=== PATIENT | male | born 1940 | race Caucasian/White ===

== ENCOUNTER 2016-12-31 06:12 | Observation (INO) | payer OTHER ==
[~2016-12-31] VITALS: Ht 175.3 cm; Wt 99.8 kg
[2016-12-31] VITALS (12 sets, daily range): BP systolic 100–142; BP diastolic 60–84
[2016-12-31] MEDS ORDERED: GABA600T2 PO (06:53)
[2016-12-31] MEDS ORDERED: METF10002 PO (06:53)
[2016-12-31] MEDS ORDERED: METO25TA9 PO (06:53)
[2016-12-31] MEDS ORDERED: INDA2.5T PO (06:53)
[2016-12-31] MEDS ORDERED: LOSA100T6 PO (06:53)
[2016-12-31] MEDS ORDERED: LIRA0.6P SQ (06:55)
[2016-12-31] MEDS ORDERED: OMEG-113 PO (06:55)
[2016-12-31] MEDS ORDERED: ASPI81TA2 PO (06:55)
[2016-12-31] MEDS ORDERED: FURO20TA3 PO (06:55)
[2016-12-31] MEDS ORDERED: GLIM4TAB2 PO (06:55)
[2016-12-31] MEDS ORDERED: LIDOCAINE 2% 20 ML VIAL. ONE (07:09)
[2016-12-31 07:19] LABS: HEMATOCRIT 37.2 % (39.0-53.0); HEMOGLOBIN 12.5 g/dL (13.0-17.5); RED BLOOD COUNT 3.99 x10^6/uL (4.30-5.70); RED CELL DISTRIBUTION WIDTH 13.1 % (11.5-14.5); WHITE BLOOD COUNT 9.2 x10^3/uL (4.0-11.0)
[2016-12-31 07:26] LABS: CALCIUM 9.2 mg/dL (8.5-10.1); CREATININE 1.4 mg/dL (0.7-1.3); GFR 49.1
[2016-12-31 07:32] LABS: INR 1.1 (0.8-1.1); PROTHROMBIN TIME PATIENT 13.2 SEC (11.7-14.0)
[2016-12-31] MEDS ORDERED: IODIXANOL 320 MG/ML 100 ML VIAL. ONE ×2 (07:51→08:32)
[2016-12-31] MEDS ORDERED: HEPARIN for IV BOLUS 10,000 UNIT/10 ML VIAL. ONE (07:58)
[2016-12-31] MEDS ORDERED: NITROGLYCERIN 200 MCG/2 ML SYRINGE FOR CATH/VASC LAB. ONE ×2 (07:58→09:11)
[2016-12-31] MEDS ORDERED: FENTANYL PF 100 MCG/2 ML VIAL. ONE (07:58)
[2016-12-31] MEDS ORDERED: VERAPAMIL 5 MG/2 ML VIAL. ONE (07:58)
[2016-12-31] MEDS ORDERED: MIDAZOLAM HCL 2 MG/2 ML VIAL. ONE (07:59)
--- NOTE | 2016-12-31 08:03 | PDOC ---
MODERATE SEDATION ASSESSMENT RISKS/ALTERNATIVES Risks/Alternatives Risks and alternatives of this type of sedation and procedure discussed with: RISK/ALTERNATIVES: Patient H & P ON CHART H & P H & P on chart and reviewed for co-morbid conditions and appropriate labs. H&P ON CHART: Yes STATUS PREG STATUS ASSESSED: N/A MEDS/ALLERGIES REVIEWED Meds/Allergies Reviewed Medications and Allergies including time and route of recently administered narcotics and sedatives. MEDS/ALLERGIES REVIEWED: Yes ASA RATING ASA RATING: II AIRWAY ASSESSMENT Airway Assessment Airway patency, oral function limitations, presence of caps, crowns, dentures, partials, and ability to extend neck assessed. AIRWAY ASSESSMENT: Yes MALLAMPATI SCORE MALLAMPATI SCORE: II PRE-SEDATION ASSESSMENT PRE-SEDATION ASSESSMENT: Yes PEPPER MCCRACKEN MD Dec 31, 2016 08:03
[2016-12-31] MEDS ORDERED: HEPARIN for IV BOLUS 10,000 UNIT/10 ML VIAL. IART ONE (08:30)
[2016-12-31] MEDS ORDERED: NITROGLYCERIN 200 MCG/2 ML SYRINGE FOR CATH/VASC LAB. IART ONE ×2 (08:30→09:15)
[2016-12-31] MEDS ORDERED: MIDAZOLAM HCL 2 MG/2 ML VIAL. IV ONE (08:30)
[2016-12-31] MEDS ORDERED: IODIXANOL 320 MG/ML 100 ML VIAL. IART ONE (08:30)
[2016-12-31] MEDS ORDERED: VERAPAMIL 5 MG/2 ML VIAL. IART ONE (08:30)
[2016-12-31] MEDS ORDERED: FENTANYL PF 100 MCG/2 ML VIAL. IV ONE (08:30)
[2016-12-31] MEDS ORDERED: LIDOCAINE 2% 20 ML VIAL. IJ ONE (08:30)
[2016-12-31] MEDS ORDERED: BIVALIRUDIN 250 MG VIAL IV ONE ×2 (08:34→08:45)
[2016-12-31] MEDS ORDERED: CONTRAST GIVEN MC PRN (08:45)
[2016-12-31] MEDS ORDERED: ASPIRIN 325 MG TABLET ONE (09:11)
[2016-12-31] MEDS ORDERED: CLOPIDOGREL BISULFATE 75 MG TABLET ONE (09:12)
[2016-12-31] MEDS ORDERED: ASPIRIN 325 MG TABLET PO ONE (09:15)
[2016-12-31] MEDS ORDERED: CLOPIDOGREL BISULFATE 75 MG TABLET PO ONE (09:15)
[2016-12-31] MEDS: IV 1/2 NORMAL SALINE 1,000 ML IV SCH (09:46)
[2016-12-31] MEDS ORDERED: NITROGLYCERIN SUBLINGUAL 0.4 MG BOTTLE OF 25. SL PRN (10:00)
[2016-12-31] MEDS: ASPIRIN ENTERIC COATED 325 MG TABLET.DR. PO SCH (10:00)
[2016-12-31] MEDS ORDERED: ACETAMINOPHEN 325 MG TABLET. PO PRN (10:00)
[2016-12-31] MEDS: CLOPIDOGREL BISULFATE 75 MG TABLET PO SCH (10:00)
--- NOTE | 2016-12-31 10:24 | CARD ---
APPROVED REPORT Procedure(s) performed: 1. Left heart catheterization and selective coronary angiography 2. Successful complex bifurcation PCI/stent placement to distal RCA/posterolateral branch/posterior descending branch INDICATION The indication(s) include : unstable angina . PROCEDURE NARRATIVE After explaining the risks, benefits and alternative options, informed consent from patient. Patient was brought to the cardiac [employer] and his right wrist was prepped and draped in the usual fashion after confirming a positive modified Otto's test. Arterial access was obtained in the right radial a rtery and 6 [place]ian sheath was inserted. Several attempts to advance a 6 [place] Timi catheter into t he ascending aorta were unsuccessful due to abnormal takeoff of the brachiocephalic artery from the a ortic arch. Subsequently, patient's right groin was prepped and draped in the usual fashion. 20 mL of 2% lidocaine was infiltrated into skin and subcutaneous tissues for local anesthesia. Arterial acces s was obtained in the right common femoral artery and 6 Zambian sheath was inserted. 6 [place]ian JL4 cath eter was used to perform selective angiography of the left coronary artery. After initial unsuccessfu l attempts at engaging the right coronary artery using 6 [place]ian JR4 catheter, this was successfully e ngaged with a 6 [place]ian 3 DRC catheter and selective angiography was performed. Left ventricular end-d iastolic pressure and transaortic gradients were measured. The following findings were noted. FINDINGS 1. Hemodynamics: Left ventricular end-diastolic pressure 17 mmHg. No pullback gradient across the a ortic valve. 2. Coronary angiography: a. The left main coronary artery arose from the left sinus of Valsalva, gave rise to the left anteri or descending and left circumflex arteries and did not show any significant stenosis. b. The left anterior descending artery showed 80% stenosis in the mid to distal segment. The first d iagonal branch showed 80% stenosis in a tortuous midsegment. The second diagonal branch showed patent stents in the proximal and mid segments. c. The left circumflex artery showed chronic total occlusion of a small obtuse marginal branch witho ut any other significant stenoses. d. The right coronary artery was a large and dominant vessel arising from the right sinus of Valsalv a that showed 30% in-stent restenosis in the midsegment. The distal segment showed a complex 90% bifu rcation stenosis involving the distal segment extending into the posterolateral and posterior descend ing arteries. INTERVENTION The right coronary artery was engaged with a 6 [place]ian AR guide catheter. The stenosis in the distal s egment was crossed into the posterolateral branch with a 0.014 inch [employer] prowater guidewire. A [employer] water guidewire was used to cross the stenosis into the posterior descending branch. Both thes e stenoses with sequentially dilated using a 2.25 x 12 mm trek balloon. Subsequently, the distal RCA and the posterolateral branch lesions were treated with a 2.5 x 14 mm resolute drug eluting stent. Th e stent struts were crossed into the posterior descending branch with the pro-water guidewire and a s truts and the lesion dilated with a 2.25 x 12 mm NC trek noncompliant balloon. Follow-up angiography showed resolution of the lesion to 0% with MART-3 distal flow. Patient tolerated the procedure well. Hemostasis was achieved using Angio-Seal in the groin and TR band in the right wrist. There were no i mmediate complications. Conclusion 90% complex bifurcation lesion involving the distal RCA/posterior descending/posterolateral branches as described above that was successfully treated with drug-eluting stent placement. Patient also has 80% stenoses involving the left anterior descending artery and also the first diagonal branch. Recommendations 1. Aspirin 325 mg daily 2. Plavix 75 mg daily for preferably one year 3. Plan for staged PCI/stents to LAD and diagnonal branch 4. Cardiovascular risk factor modification.
[2016-12-31] MEDS ORDERED: DEXTROSE 50% 25 GM / 50ML DISP.SYRIN. IV PRN (10:45)
[2016-12-31] MEDS: METOPROLOL SUCC 24HR ER 25 MG TAB.ER.24H. PO SCH (12:35)
[2016-12-31] MEDS: GLIMEPIRIDE 2 MG TABLET PO SCH ×2 (12:35→20:51)
[2016-12-31] MEDS: LOSARTAN POTASSIUM 50 MG TABLET. PO SCH (12:36)
[2016-12-31] MEDS ORDERED: ATORVASTATIN CALCIUM 40 MG TABLET. PO SCH (21:00)
[2016-12-31] MEDS: GABAPENTIN 300 MG CAPSULE. PO SCH (22:17)
[2017-01-01 03:00] VITALS: BP 139/72
[2017-01-01 07:08] VITALS: BP 152/79
[2017-01-01] MEDS: IV 1/2 NORMAL SALINE 1,000 ML IV SCH (07:30)
[2017-01-01] MEDS: GLIMEPIRIDE 2 MG TABLET PO SCH (08:11)
[2017-01-01] MEDS: ASPIRIN ENTERIC COATED 325 MG TABLET.DR. PO SCH (08:11)
[2017-01-01] MEDS: METOPROLOL SUCC 24HR ER 25 MG TAB.ER.24H. PO SCH (08:11)
[2017-01-01] MEDS: LOSARTAN POTASSIUM 50 MG TABLET. PO SCH (08:12)
[2017-01-01] MEDS: CLOPIDOGREL BISULFATE 75 MG TABLET PO SCH (08:12)
[2017-01-01] MEDS: GABAPENTIN 300 MG CAPSULE. PO SCH (08:12)
[2017-01-01 08:39] VITALS: BP 129/78
[2017-01-01 10:31] VITALS: BP 134/71
[2017-01-01] MEDS ORDERED: CLOP75TA PO (11:04)
[2017-01-01] MEDS ORDERED: ASPI325T4 PO (11:04)
--- NOTE | 2017-01-01 13:34 | PDOC3 ---
Discharge Summary Visit Information Date of Admission: Dec 31, 2016 Date of Discharge: Jan 01, 2017 Admitting Diagnosis: Chest Pain Final Diagnosis Problems Medical Problems: (1) CAD (coronary artery disease) Status: Acute (2) Unstable angina Status: Acute Brief Hospital Course Allergies Allergies Coded Allergies Type Severity Reaction Last Updated Verified No Known Drug Allergies 12/31/16 No Vital Signs Vital Signs Date Time Temp Pulse Resp B/P Pulse Ox O2 Delivery O2 Flow Rate FiO2 01/01/17 10:31 97.7 72 20 134/71 96 Room Air 97.7 01/01/17 08:00 2.0 Lab Results Laboratory Tests Test 12/31/16 07:10 12/31/16 17:36 12/31/16 21:09 01/01/17 08:47 White Blood Count 9.2x10^3/uL (4.0-11.0) Red Blood Count 3.99x10^6/uL (4.30-5.70) Hemoglobin 12.5g/dL (13.0-17.5) Hematocrit 37.2% (39.0-53.0) Mean Corpuscular Volume 93fL (79-100) Mean Corpuscular Hemoglobin 31pg (25-35) Mean Corpuscular Hemoglobin Concent 34g/dL (31-37) Red Cell Distribution Width 13.1% (11.5-14.5) Platelet Count 300x10^3/uL (140-400) Prothrombin Time 13.2SEC (11.7-14.0) Prothromb Time International Ratio 1.1 (0.8-1.1) Activated Partial Thromboplast Time 28SEC (24-38) Sodium Level 141mmol/L (136-145) Potassium Level 4.0mmol/L (3.5-5.1) Chloride Level 104mmol/L (98-107) Carbon Dioxide Level 27mmol/L (21-32) Anion Gap 10 (6-14) Blood Urea Nitrogen 23mg/dL (8-26) Creatinine 1.4mg/dL (0.7-1.3) Estimated GFR (Cockcroft-Gault) 49.1 Glucose Level 145mg/dL (70-99) Calcium Level 9.2mg/dL (8.5-10.1) Glucose (Fingerstick) 157mg/dL (70-99) 170mg/dL (70-99) 186mg/dL (70-99) Laboratory Tests Test 12/31/16 17:36 12/31/16 21:09 01/01/17 08:47 Glucose (Fingerstick) 157mg/dL (70-99) 170mg/dL (70-99) 186mg/dL (70-99) Brief Hospital Course Mr. Madrid is a 76 old male, with a history of CAD, who presented electively to the cardiac catheterization lab secondary to dyspnea on [id number]-[id number] exertions. Angiogram demonstrated 90% complex bifurcation lesion involving the distal RCA/posterior descending/posterolateral branches, which was successfully treated with drug-eluting stent placement. Additional 80% stenoses involving the left anterior descending artery and also the first diagonal branch noted with plan for staged intervention next week. Monitored overnight without complications or dysrhythmias noted on telemetry. Right femoral arteriotomy site C/D/I with neurovascular status intact. Lungs CTA bilaterally. Heart tones regular; no murmurs present. DAPT with ASA 325 mg indefinitely and Plavix 75mg preferably for one year. Discharge Information Condition at Discharge: Improved Follow Up: Weeks (next week) Disposition/Orders: D/C to Home Scheduled Aspirin (Aspirin) 1 TAB PO DAILY Clopidogrel Bisulfate (Clopidogrel) 1 TAB PO DAILY Furosemide (Furosemide) 1 TAB PO DAILY (Reported) Gabapentin (Gabapentin) 600 MG PO TID (Reported) Glimepiride (Glimepiride) 1 TAB PO BID (Reported) Indapamide (Indapamide) 1 TAB PO DAILY (Reported) Liraglutide (Victoza 2-Fernando) 0.6 MG SQ DAILY (Reported) Losartan Potassium (Losartan Potassium) 100 MG PO DAILY (Reported) Metformin Hcl (Metformin Hcl) 1 TAB PO BID (Reported) Metoprolol Succinate (Metoprolol Succinate ( Xl )) 50 MG PO DAILY (Reported) [place]-3S/Dha/Epa/Fish Oil (Fish Oil 1,200 mg Softgel) 2 EACH PO DAILY (Reported ) Discontinued Medications Aspirin (Aspirin) 1 TAB PO DAILY (Reported) Patient Instructions Patient Instructions GENERAL INSTRUCTIONS: 1. Your dressing should be removed prior to leaving the hospital. 2. It is OK to shower the day after your procedure. 3. If you received stents, be sure to carry your stent information card with you in your wallet/purse at all times. 4. Call the office immediately at [phone] if you notice any fever or if there is redness, worsening tenderness/pain, increased bruising, or drainage from the puncture site. 5. Should you have bleeding from the site, lie down immediately & put pressure on the site. The pressure should be hard enough to stop the bleeding. Have the nearest person call 911. DO NOT try to drive to the ER with active bleeding. 6. If you notice a change in color, coolness to touch, or loss of feeling in the affected extremity, come to the emergency room. Please have someone drive you or call 911 if no one is available. DO NOT drive yourself. 7. If you normally take glucophage (metformin), please do not take this medicine for 48 hours following your procedure. 8. DO NOT STOP TAKING YOUR PLAVIX OR ASPIRIN UNLESS IT IS CLEARED BY A ANIMAL CARE GIVER OF YOUR FILLING CARRIER AT OUR OFFICE. 9. QUIT SMOKING: the [place] [employer], [place] [employer], & [place] [employer] have cessation resources available on their websites 10. Please have someone available to drive you home from the hospital as you may be limited by sedation medications given during the procedure. Femoral (Groin) access: 1. Do no lifting, pushing, pulling, bending, stooping, or recurrent stair climbing for 3 days following your procedure. 2. Once past the first 3 days, do not do any HEAVY exertion or lifting for one week following the procedure. No gym workouts, running, lifting greater than a gallon of milk, etc 3. Do not submerge in bath or pool for one week. OK to drive 3 days following your procedure, but if going long distance, do not go alone & take hourly breaks to get out of car and walk around. Radial Artery (Wrist) access: 1. No pushing, pulling, lifting, typing, or anything that requires repetitive use/movement of the affected wrist for 3 days following your procedure. 2. OK to drive the day following your procedure. (This is because of effects of sedating medications.) Call the office at [phone] for any questions or concerns. LU MARTINEZ APRN Jan 01, 2017 13:34
== END 2017-01-01 12:30 | disposition home or self-care (01) ==
LOC: CCL 06:12 → 2 SOUTH 08:59
PROVIDERS: ADMIT Internal Medicine Cardiovascular Disease; ATTEND Internal Medicine Cardiovascular Disease
DX: I25.110 Atherosclerotic heart disease of native coronary artery with unstable angina pectoris (principal)
CPT/HCPCS: 36415; 80048; 82947; 85027; 85610; 85730; 92921; 92928; 93458; 96374; 96375; C1725; C1769; C1771; C1874; C1887; C1892; G0269; G0378; G0379; J0583; J2250; J3010; J3490

== ENCOUNTER 2017-01-07 06:10 | Inpatient (IN) | payer OTHER ==
[~2017-01-07] VITALS: Ht 175.3 cm; Wt 98.9 kg
[2017-01-07] VITALS (15 sets, daily range): BP systolic 95–149; BP diastolic 55–82
[~2017-01-07 06:10] MED LIST: ASPI325T4 PO; ASPI81TA2 PO; CLOP75TA PO; FURO20TA3 PO; GABA600T2 PO; GLIM4TAB2 PO; INDA2.5T PO; LIRA0.6P SQ; LOSA100T6 PO; METF10002 PO; METO25TA9 PO; OMEG-113 PO
[2017-01-07 07:10] LABS: HEMATOCRIT 38.1 % (39.0-53.0); RED BLOOD COUNT 4.09 x10^6/uL (4.30-5.70); RED CELL DISTRIBUTION WIDTH 13.3 % (11.5-14.5)
[2017-01-07] MEDS ORDERED: LIDOCAINE 2% 20 ML VIAL. ONE (07:16)
[2017-01-07] MEDS ORDERED: IOHEXOL 300 MG/ML 100ML VIAL. ONE ×3 (07:16→08:52)
[2017-01-07 07:18] LABS: CALCIUM 9.9 mg/dL (8.5-10.1); CREATININE 1.4 mg/dL (0.7-1.3); GFR 49.1; POTASSIUM 4.5 mmol/L (3.5-5.1)
[2017-01-07 07:36] LABS: PROTHROMBIN TIME PATIENT 12.4 SEC (11.7-14.0)
[2017-01-07] MEDS ORDERED: FENTANYL PF 100 MCG/2 ML VIAL. ONE (07:59)
[2017-01-07] MEDS ORDERED: MIDAZOLAM HCL 2 MG/2 ML VIAL. ONE (07:59)
[2017-01-07] MEDS ORDERED: IOHEXOL 300 MG/ML 100ML VIAL. IART ONE (08:15)
[2017-01-07] MEDS ORDERED: LIDOCAINE 2% 20 ML VIAL. IJ ONE (08:15)
[2017-01-07] MEDS ORDERED: FENTANYL PF 100 MCG/2 ML VIAL. IV ONE (08:15)
[2017-01-07] MEDS ORDERED: MIDAZOLAM HCL 2 MG/2 ML VIAL. IV ONE (08:15)
[2017-01-07] MEDS ORDERED: BIVALIRUDIN 250 MG VIAL IV ONE ×2 (08:24→08:30)
[2017-01-07] MEDS ORDERED: CLOPIDOGREL BISULFATE 75 MG TABLET ONE (08:52)
[2017-01-07] MEDS ORDERED: ASPIRIN 325 MG TABLET ONE (08:52)
[2017-01-07] MEDS ORDERED: ASPIRIN 325 MG TABLET PO ONE (09:00)
[2017-01-07] MEDS ORDERED: CLOPIDOGREL BISULFATE 75 MG TABLET PO ONE (09:00)
--- NOTE | 2017-01-07 09:28 | PDOC ---
MODERATE SEDATION ASSESSMENT RISKS/ALTERNATIVES Risks/Alternatives Risks and alternatives of this type of sedation and procedure discussed with: RISK/ALTERNATIVES: Patient H & P ON CHART H & P H & P on chart and reviewed for co-morbid conditions and appropriate labs. H&P ON CHART: Yes STATUS PREG STATUS ASSESSED: N/A MEDS/ALLERGIES REVIEWED Meds/Allergies Reviewed Medications and Allergies including time and route of recently administered narcotics and sedatives. MEDS/ALLERGIES REVIEWED: Yes ASA RATING ASA RATING: II AIRWAY ASSESSMENT Airway Assessment Airway patency, oral function limitations, presence of caps, crowns, dentures, partials, and ability to extend neck assessed. AIRWAY ASSESSMENT: Yes MALLAMPATI SCORE MALLAMPATI SCORE: II PRE-SEDATION ASSESSMENT PRE-SEDATION ASSESSMENT: Yes PEPPER MCCRACKEN MD Jan 07, 2017 09:28
[2017-01-07] MEDS: IV 1/2 NORMAL SALINE 1,000 ML IV SCH ×2 (09:31→18:14)
[2017-01-07] MEDS ORDERED: NITROGLYCERIN SUBLINGUAL 0.4 MG BOTTLE OF 25. SL PRN (09:45)
[2017-01-07] MEDS ORDERED: ACETAMINOPHEN 325 MG TABLET. PO PRN (09:45)
--- NOTE | 2017-01-07 09:48 | CARD ---
APPROVED REPORT Procedure(s) performed: Successful PCI/drug eluting stents placement to the left anterior descending artery and the first diagonal branch. INDICATION The indication(s) include : 76-year-old male recently underwent PCI/drug eluting stent placement to h is right coronary artery on 12/31/16 in the setting of unstable angina. He presented today for complet ion angioplasty and stent placement to the left anterior descending artery and the first diagonal bra [facility].. PROCEDURE NARRATIVE After explaining the risks, benefits and alternative options, informed conservative patient. Patient was brought to the cardiac [employer] and his right groin was prepped and draped in the usual fashion. 20 mL of 2% lidocaine was infiltrated into the skin and subcutaneous tissues for local anesthesia. Ar terial access was obtained in the right common femoral artery and 6 Bhutanese sheath was inserted. 6 Shahriar [facility] XB 3.5 guide catheter was used to engage the left coronary artery and selective angiography was p erformed. This confirmed the previously described 80% stenosis involving the mid to distal segment of left anterior descending artery and 80-90% stenosis involving a tortuous midsegment of the first merissa gonal branch. The stenosis in the left anterior descending artery was crossed with a 0.014 inch [employer] prowater guid ewire and was successfully treated with a 2.25 x 8 mm Xience Alpine drug-eluting stent. Subsequently, the stenosis in the diagonal branch was crossed with a 0.014 inch choice PT guidewire with a backup support from Corsair microcatheter after initial attempts at crossing this with a pro-water guidewire was unsuccessful. The stenosis was then predilated with a 2.0 x 12 mm mini trek balloon following wa s successfully treated with a 2.25 x 15 mm Xience alpine drug-eluting stent. Final angiography showed resolution of both the stenoses to 0% with MART-3 distal flow. Patient tolerated the procedure well. Hemostasis in the right groin achieved using Angio-Seal. There were no immediate complications. Conclusion Successful PCI/drug eluting stent placement to the left anterior descending artery and also the first diagonal branch. Recommendations 1. Aspirin 325 mg daily 2. Plavix 75 mg daily for preferably one year 3. Cardiovascular risk factor modification.
[2017-01-07] MEDS ORDERED: GABA600T2 PO (11:34)
[2017-01-07] MEDS ORDERED: DEXTROSE 50% 25 GM / 50ML DISP.SYRIN. IV PRN (12:45)
[2017-01-07] MEDS: GABAPENTIN 400 MG CAPSULE. PO SCH ×2 (15:34→20:19)
[2017-01-07] MEDS: INSULIN ASPART 300 UNITS/3 ML INSULN.PEN SQ SCH (18:07)
[2017-01-07] MEDS ORDERED: IV NORMAL SALINE 1000ML BAG 1,000 ML IV SCH (19:00)
[2017-01-08 03:40] VITALS: BP 131/54
[2017-01-08 06:08] LABS: CALCIUM 9.6 mg/dL (8.5-10.1); CREATININE 1.3 mg/dL (0.7-1.3); GFR 53.5; POTASSIUM 4.3 mmol/L (3.5-5.1)
[2017-01-08 07:23] VITALS: BP 136/72
[2017-01-08] MEDS ORDERED: GLIMEPIRIDE 2 MG TABLET PO SCH (08:00)
[2017-01-08] MEDS ORDERED: ASPIRIN 325 MG TABLET PO SCH (08:00)
[2017-01-08] MEDS ORDERED: CLOPIDOGREL BISULFATE 75 MG TABLET PO SCH (08:00)
[2017-01-08] MEDS: GABAPENTIN 400 MG CAPSULE. PO SCH (08:32)
[2017-01-08] MEDS: INSULIN ASPART 300 UNITS/3 ML INSULN.PEN SQ SCH ×2 (08:39→12:48)
[2017-01-08] MEDS ORDERED: FUROSEMIDE 20 MG TABLET PO SCH (09:00)
[2017-01-08] MEDS ORDERED: INDAPAMIDE 2.5 MG TABLET PO SCH (09:00)
[2017-01-08] MEDS ORDERED: LOSARTAN POTASSIUM 50 MG TABLET. PO SCH (09:00)
[2017-01-08] MEDS ORDERED: METOPROLOL SUCC 24HR ER 50 MG TAB.ER.24H. PO SCH (09:00)
[2017-01-08] MEDS ORDERED: OMEGA-3 FATTY ACIDS/FISH OIL 1,000 MG CAPSULE. PO SCH (09:00)
[2017-01-08 10:26] VITALS: BP 109/75
[2017-01-08 11:00] LABS: CHOLESTEROL/HDL RATIO 5.4
--- NOTE | 2017-01-08 14:47 | PDOC3 ---
Discharge Summary Visit Information Date of Admission: Jan 07, 2017 Date of Discharge: Jan 08, 2017 Admitting Diagnosis: Coronary artery disease Final Diagnosis Coronary artery disease Hypertension Diabetes mellitus Brief Hospital Course Allergies Allergies Coded Allergies Type Severity Reaction Last Updated Verified No Known Drug Allergies 12/31/16 No Vital Signs Vital Signs Date Time Temp Pulse Resp B/P Pulse Ox O2 Delivery O2 Flow Rate FiO2 01/08/17 10:26 98.2 71 18 109/75 95 Room Air 98.2 01/07/17 09:19 2.0 Lab Results Laboratory Tests Test 01/07/17 07:02 01/07/17 12:19 01/07/17 16:53 01/07/17 20:24 White Blood Count 9.0x10^3/uL (4.0-11.0) Red Blood Count 4.09x10^6/uL (4.30-5.70) Hemoglobin 13.0g/dL (13.0-17.5) Hematocrit 38.1% (39.0-53.0) Mean Corpuscular Volume 93fL (79-100) Mean Corpuscular Hemoglobin 32pg (25-35) Mean Corpuscular Hemoglobin Concent 34g/dL (31-37) Red Cell Distribution Width 13.3% (11.5-14.5) Platelet Count 328x10^3/uL (140-400) Prothrombin Time 12.4SEC (11.7-14.0) Prothromb Time International Ratio 1.0 (0.8-1.1) Activated Partial Thromboplast Time 36SEC (24-38) Sodium Level 139mmol/L (136-145) Potassium Level 4.5mmol/L (3.5-5.1) Chloride Level 102mmol/L (98-107) Carbon Dioxide Level 27mmol/L (21-32) Anion Gap 10 (6-14) Blood Urea Nitrogen 32mg/dL (8-26) Creatinine 1.4mg/dL (0.7-1.3) Estimated GFR (Cockcroft-Gault) 49.1 Glucose Level 145mg/dL (70-99) Calcium Level 9.9mg/dL (8.5-10.1) Glucose (Fingerstick) 245mg/dL (70-99) 171mg/dL (70-99) 217mg/dL (70-99) Test 01/08/17 05:00 01/08/17 08:05 01/08/17 11:14 Sodium Level 138mmol/L (136-145) Potassium Level 4.3mmol/L (3.5-5.1) Chloride Level 100mmol/L (98-107) Carbon Dioxide Level 28mmol/L (21-32) Anion Gap 10 (6-14) Blood Urea Nitrogen 22mg/dL (8-26) Creatinine 1.3mg/dL (0.7-1.3) Estimated GFR (Cockcroft-Gault) 53.5 Glucose Level 174mg/dL (70-99) Calcium Level 9.6mg/dL (8.5-10.1) Triglycerides Level 162mg/dL (0-150) Cholesterol Level 212mg/dL (0-200) LDL Cholesterol, Calculated 141mg/dL (0-100) VLDL Cholesterol, Calculated 32mg/dL (0-40) HDL Cholesterol 39mg/dL (40-60) Cholesterol/HDL Ratio 5.4 Glucose (Fingerstick) 183mg/dL (70-99) 223mg/dL (70-99) Laboratory Tests Test 01/07/17 16:53 01/07/17 20:24 01/08/17 05:00 01/08/17 08:05 Glucose (Fingerstick) 171mg/dL (70-99) 217mg/dL (70-99) 183mg/dL (70-99) Sodium Level 138mmol/L (136-145) Potassium Level 4.3mmol/L (3.5-5.1) Chloride Level 100mmol/L (98-107) Carbon Dioxide Level 28mmol/L (21-32) Anion Gap 10 (6-14) Blood Urea Nitrogen 22mg/dL (8-26) Creatinine 1.3mg/dL (0.7-1.3) Estimated GFR (Cockcroft-Gault) 53.5 Glucose Level 174mg/dL (70-99) Calcium Level 9.6mg/dL (8.5-10.1) Triglycerides Level 162mg/dL (0-150) Cholesterol Level 212mg/dL (0-200) LDL Cholesterol, Calculated 141mg/dL (0-100) VLDL Cholesterol, Calculated 32mg/dL (0-40) HDL Cholesterol 39mg/dL (40-60) Cholesterol/HDL Ratio 5.4 Test 01/08/17 11:14 Glucose (Fingerstick) 223mg/dL (70-99) Brief Hospital Course Mr. Madrid is a 76 old male who recently underwent PCI/ELIUD to right coronary artery on 12/31/16 in the setting of unstable angina. He presented for completion angioplasty and stent placement to left anterior descending artery and also the diagonal branch. This was performed successfully and uneventfully. He was hemodynamically stable and symptom-free at the time of discharge. He will follow-up with our office in one month. Discharge Information Condition at Discharge: Stable Follow Up: Months (One) Disposition/Orders: D/C to Home Scheduled Aspirin (Aspirin) 1 TAB PO DAILY Clopidogrel Bisulfate (Clopidogrel) 1 TAB PO DAILY Furosemide (Furosemide) 1 TAB PO DAILY (Reported) Gabapentin (Gabapentin) 1,200 MG PO TID (Reported) Glimepiride (Glimepiride) 1 TAB PO BID (Reported) Indapamide (Indapamide) 1 TAB PO DAILY (Reported) Liraglutide (Victoza 2-Fernando) 0.6 MG SQ DAILY (Reported) Losartan Potassium (Losartan Potassium) 100 MG PO DAILY (Reported) Metformin Hcl (Metformin Hcl) 1 TAB PO BID (Reported) Metoprolol Succinate (Metoprolol Succinate ( Xl )) 50 MG PO DAILY (Reported) [place]-3S/Dha/Epa/Fish Oil (Fish Oil 1,200 mg Softgel) 2 EACH PO DAILY (Reported ) Discontinued Medications Aspirin (Aspirin) 1 TAB PO DAILY (Reported) Gabapentin (Gabapentin) 600 MG PO TID (Reported) PEPPER MCCRACKEN MD Jan 08, 2017 14:47
== END 2017-01-08 16:00 | disposition home or self-care (01) | DRG 247 ==
LOC: CCL 06:10 → CVICU 09:24
PROVIDERS: ADMIT Internal Medicine Cardiovascular Disease; ATTEND Internal Medicine Cardiovascular Disease
PROC: B2111ZZ Fluoroscopy of Multiple Coronary Arteries using Low Osmolar Contrast (ICD-10-PCS; principal; 2017-01-07)
PROC: 027135Z Dilation of Coronary Artery, Two Arteries with Two Drug-eluting Intraluminal Devices, Percutaneous Approach (ICD-10-PCS; 2017-01-07)
DX: I25.110 Atherosclerotic heart disease of native coronary artery with unstable angina pectoris (principal); I10 Essential (primary) hypertension; E11.9 Type 2 diabetes mellitus without complications
CPT/HCPCS: 36415; 80048; 80061; 82947; 85027; 85610; 85730; 92928; 92929; C1725; C1769; C1771; C1874; C1887; C1892; G0269; J0583; J1815; J2250; J3010; Q9967

== ENCOUNTER → 2017-08-02 | Outpatient (CLI) | payer OTHER ==
[~2017-08-02] MED LIST changes: +ASPI-630 PO; -ASPI325T4 PO; +ASPI325T8 PO; -ASPI81TA2 PO; +METF-620 PO; -METF10002 PO; +METO-239 PO; -METO25TA9 PO
--- NOTE | 2017-08-02 11:36 | CARD ---
APPROVED REPORT EXAM: Two-dimensional and M-mode echocardiogram with Doppler and color Doppler. Other Information Quality : GoodHR: 70bpm Rhythm : NSR INDICATION Cardiac Disease: CAD RISK FACTORS Obesity 2D DIMENSIONS RVDd3.3 (2.9-3.5cm)Left Atrium(2D)4.7 (1.6-4.0cm) IVSd1.3 (0.7-1.1cm)Aortic Root(2D)2.9 (2.0-3.7cm) LVDd4.9 (3.9-5.9cm)LVOT Diameter2.4 (1.8-2.4cm) PWd1.3 (0.7-1.1cm)LVDs3.4 (2.5-4.0cm) FS (%) 30.2 %SV65.9 ml LVEF(%)57.3 (>50%) Aortic Valve AoV Peak Aaron.154.0cm/sAoV VTI35.1cm AO Peak GR.9.5mmHgLVOT Peak Aaron.142.1cm/s AO Mean GR.6mmHgAVA (VMAX)4.32cm2 AI P 1/2 [id number] Mitral Valve MV E Limqczew07.2cm/sMV E Peak Gr.4mmHg MV DECEL [id number] A Kpllnpbs299.2cm/s MV E Mean Gr.1mmHgE/A Ratio0.7 MV A [id number] Pulmonary Valve PV Peak Fjkuxwze36.0cm/s Tricuspid Valve TR P. Slcuhnmz074wp/sTR Peak Gr.28mmHg Pulmonary Vein S1 Pkmkzsbw81.3cm/sD2 Wmtcofon50.9cm/s PVa [id number] LEFT VENTRICLE The left ventricle is normal size. There is mild concentric left ventricular hypertrophy. The left ve ntricular systolic function is normal. The Ejection Fraction is 60-65%. There is normal LV segmental wall motion. Transmitral Doppler flow pattern is Grade I-abnormal relaxation pattern. RIGHT VENTRICLE The right ventricle is normal size. There is normal right ventricular wall thickness. The right ventr icular systolic function is normal. ATRIA The left atrium is moderately dilated. The right atrium size is normal. The interatrial septum is int act with no evidence for an atrial septal defect or patent foramen ovale as noted on 2-D or Doppler i ing. AORTIC VALVE The aortic valve is mildly sclerotic. The aortic valve is trileaflet. Doppler and Color Flow revealed mild aortic regurgitation. There is no significant aortic valvular stenosis. MITRAL VALVE Mitral annular calcification is mild. The mitral valve leaflets are thickened. There is no evidence o f mitral valve prolapse. There is no mitral valve stenosis. Doppler and Color Flow revealed mild mitr al regurgitation. TRICUSPID VALVE Doppler and Color Flow revealed mild tricuspid regurgitation. The pulmonary artery systolic pressure is estimated at 31 mmHg. There is mild pulmonary hypertension. PULMONIC VALVE The pulmonary valve is not well visualized but appears to open adequately. Doppler and Color Flow rev ealed no pulmonic valvular regurgitation. There is no pulmonic valvular stenosis by spectral Doppler. GREAT VESSELS The aortic root is normal in size. The ascending aorta is normal in size. The pulmonary artery is nor mal. The IVC is normal in size and collapses >50% with inspiration. PERICARDIAL EFFUSION There is no evidence of significant pericardial effusion. Critical Notification Critical Value: No <Conclusion> The left ventricular systolic function is normal. The Ejection Fraction is 60-65%. There is normal LV segmental wall motion. Transmitral Doppler flow pattern is Grade I-abnormal relaxation pattern. The left atrium is moderately dilated. Mild aortic regurgitation. Mild tricuspid regurgitation. The pulmonary artery systolic pressure is estimated at 31 mmHg. There is no evidence of significant pericardial effusion.
== END | disposition home or self-care (01) ==
LOC: ECHO 09:40
PROVIDERS: ATTEND Internal Medicine Cardiovascular Disease
DX: I08.2 Rheumatic disorders of both aortic and tricuspid valves (principal); I25.10 Atherosclerotic heart disease of native coronary artery without angina pectoris; I27.2 Other secondary pulmonary hypertension
CPT/HCPCS: 93306

== ENCOUNTER → 2018-02-14 | Outpatient (CLI) | payer OTHER | END | disposition home or self-care (01) | LOC: KCIC MRI 08:41 | DX: G93.41 Metabolic encephalopathy (principal) | CPT/HCPCS: 70551 ==

== ENCOUNTER → 2018-02-20 | Outpatient (CLI) | payer OTHER | END | disposition home or self-care (01) | LOC: KCIC US 11:55 | DX: I65.21 Occlusion and stenosis of right carotid artery (principal); I10 Essential (primary) hypertension; Z86.73 Personal history of transient ischemic attack (TIA), and cerebral infarction without residual deficits | CPT/HCPCS: 93880 ==

== ENCOUNTER → 2021-07-07 | Outpatient (CLI) | payer MEDICARE, OTHER ==
[~2021-07-07] MED LIST changes: -GABA600T2 PO; +GABA600T7 PO; +GADOTERATE 7.5 MMOL/15ML VIAL. IVP ONE; -GLIM4TAB2 PO; +GLIM4TAB8 PO; +LOSA100T14 PO; -LOSA100T6 PO; -METF-620 PO; +METF10007 PO
--- NOTE | 2021-07-07 11:20 | KCIC ---
EXAMINATION: Magnetic resonance imaging (MRI) of the lumbar spine with and without contrast 07/07/2021 9:30 AM HISTORY: Low back pain. TECHNIQUE: Multiplanar multi-weighted MRI of the lumbar spine was performed with and without intraven ous contrast using the standard lumbar spine protocol. Contrast information: Gadolinium based contrast. COMPARISON: CT abdomen/pelvis 06/19/2021. FINDINGS: Alignment lumbar segment is within normal limits. There are scattered areas of T1 signal hypointensit y with corresponding STIR signal hyperintensity compatible with osseous metastatic disease. There is an osseous hemangioma identified at L1, L3 and L5 measuring up to 1.9 cm. Metastatic lesions appear t o involve the posterior elements as well. There is sacral and pelvic involvement. Simple cyst in the left kidney measures 1.16. Adrenal glands are normal as visualized. There is superior plate compressi on deformity involving L4 with 25 percent height loss, possibly pathologic. Degree of edema is atypic al for acute fracture and findings may be subacute or chronic. Conus medullaris remains at L2. Distal spinal cord signal intensity is normal in all sequences. No intradural enhancement is identified. L1-L2: Disc is normal in configuration. Mild facet arthropathy. No neuroforaminal or spinal canal mumtaz nosis. L2-L3: Mild disc bulge. Mild facet arthropathy. Mild bilateral neuroforaminal stenosis. No spinal can al stenosis. L3-L4: Mild circumferential disc bulge. Mild facet arthropathy. Moderate bilateral neuroforaminal mumtaz nosis. Mild spinal canal stenosis, exacerbated by epidural lipomatosis. L4-L5: Circumferential disc bulge. Moderate facet arthropathy ligamentum flavum infolding. Severe rig ht and moderate left neuroforaminal stenosis. No spinal canal stenosis. Right lateral recess stenosis . No definite epidural involvement of tumor. L5-S1: Circumferential disc bulge with central disc protrusion. Mild/moderate facet arthropathy. Mode rate bilateral neuroforaminal stenosis. No spinal canal stenosis. IMPRESSION: Diffuse osseous metastatic disease. Likely chronic impression deformity at L4 with 25 percent height loss. No significant retropulsion or canal stenosis. Mild lumbar spondylosis. No significant epidural involvement of osseous metastatic disease. Electronically signed by: Yumi Narvaez MD (07/07/2021 11:18 AM) [id number]
== END ==
LOC: KCIC MRI 08:45
PROVIDERS: ATTEND Internal Medicine Hematology & Oncology
DX: C79.51 Secondary malignant neoplasm of bone (principal); C61 Malignant neoplasm of prostate; M51.27 Other intervertebral disc displacement, lumbosacral region; M48.07 Spinal stenosis, lumbosacral region; D18.09 Hemangioma of other sites; M43.8X6 Other specified deforming dorsopathies, lumbar region; N28.1 Cyst of kidney, acquired
CPT/HCPCS: 72158; A9575

== ENCOUNTER → 2021-07-08 | Outpatient (CLI) | payer OTHER ==
[~2021-07-08] MED LIST changes: -GADOTERATE 7.5 MMOL/15ML VIAL. IVP ONE
[2021-07-08 13:36] LABS: BASO # 0.1 x10^3/uL (0.0-0.2); BASO % 1 % (0-3); EOS # 0.4 x10^3/uL (0.0-0.7); EOS % 4 % (0-3); HEMATOCRIT 33.1 % (39.0-53.0); LYMPH # 2.1 x10^3/uL (1.0-4.8); LYMPH % 24 % (24-48); MEAN CORPUSCULAR HEMOGLOBIN 29 pg (25-35); MEAN CORPUSCULAR HGB CONC 33 g/dL (31-37); MEAN CORPUSCULAR VOLUME 86 fL (79-100); MONO # 0.8 x10^3/uL (0.0-1.1); MONO % 9 % (0-9); NEUT # 5.4 x10^3/uL (1.8-7.7); NEUT % 62 % (31-73); PLATELET COUNT 347 x10^3/uL (140-400); RED BLOOD COUNT 3.86 x10^6/uL (4.30-5.70); RED CELL DISTRIBUTION WIDTH 16.6 % (11.5-14.5); WHITE BLOOD COUNT 8.7 x10^3/uL (4.0-11.0)
[2021-07-08 13:42] LABS: CALCIUM 8.9 mg/dL (8.5-10.1); GFR 71.7
[2021-07-08 13:49] LABS: ALBUMIN/GLOBULIN RATIO 0.8 (1.0-1.7); MAGNESIUM 1.7 mg/dL (1.8-2.4); TOTAL BILIRUBIN 0.2 mg/dL (0.2-1.0); TOTAL PROTEIN 6.9 g/dL (6.4-8.2)
== END ==
LOC: ONCLAB 13:15
PROVIDERS: ATTEND Physician Assistant
DX: C61 Malignant neoplasm of prostate (principal)
CPT/HCPCS: 36415; 80053; 83615; 83735; 85025

== ENCOUNTER → 2021-07-29 | Outpatient (CLI) | payer OTHER ==
[2021-07-29 11:35] LABS: BASO # 0.1 x10^3/uL (0.0-0.2); BASO % 1 % (0-3); EOS # 0.2 x10^3/uL (0.0-0.7); EOS % 2 % (0-3); HEMATOCRIT 36.8 % (39.0-53.0); HEMOGLOBIN 12.3 g/dL (13.0-17.5); LYMPH # 1.9 x10^3/uL (1.0-4.8); LYMPH % 18 % (24-48); MEAN CORPUSCULAR HEMOGLOBIN 30 pg (25-35); MEAN CORPUSCULAR HGB CONC 33 g/dL (31-37); MEAN CORPUSCULAR VOLUME 89 fL (79-100); MONO # 0.9 x10^3/uL (0.0-1.1); MONO % 9 % (0-9); NEUT # 7.8 x10^3/uL (1.8-7.7); NEUT % 72 % (31-73); PLATELET COUNT 384 x10^3/uL (140-400); RED BLOOD COUNT 4.14 x10^6/uL (4.30-5.70); RED CELL DISTRIBUTION WIDTH 18.9 % (11.5-14.5); WHITE BLOOD COUNT 10.9 x10^3/uL (4.0-11.0)
[2021-07-29 11:46] LABS: CALCIUM 8.8 mg/dL (8.5-10.1); CREATININE 1.3 mg/dL (0.7-1.3); POTASSIUM 5.1 mmol/L (3.5-5.1)
[2021-07-29 11:54] LABS: ALBUMIN 4.1 g/dL (3.4-5.0); ALBUMIN/GLOBULIN RATIO 1.1 (1.0-1.7); MAGNESIUM 1.8 mg/dL (1.8-2.4); TOTAL BILIRUBIN 0.4 mg/dL (0.2-1.0)
== END ==
LOC: ONCLAB 10:55
PROVIDERS: ATTEND Physician Assistant
DX: C61 Malignant neoplasm of prostate (principal)
CPT/HCPCS: 80053; 83615; 83735; 84153; 84154; 85025

== ENCOUNTER → 2021-08-05 | Outpatient (CLI) | payer OTHER ==
[2021-08-05 10:21] LABS: BASO # 0.1 x10^3/uL (0.0-0.2); BASO % 1 % (0-3); EOS # 0.2 x10^3/uL (0.0-0.7); EOS % 2 % (0-3); HEMATOCRIT 34.7 % (39.0-53.0); HEMOGLOBIN 11.5 g/dL (13.0-17.5); LYMPH # 1.2 x10^3/uL (1.0-4.8); LYMPH % 10 % (24-48); MEAN CORPUSCULAR HEMOGLOBIN 29 pg (25-35); MEAN CORPUSCULAR HGB CONC 33 g/dL (31-37); MEAN CORPUSCULAR VOLUME 89 fL (79-100); MONO # 0.5 x10^3/uL (0.0-1.1); MONO % 5 % (0-9); NEUT # 9.3 x10^3/uL (1.8-7.7); NEUT % 83 % (31-73); PLATELET COUNT 351 x10^3/uL (140-400); RED BLOOD COUNT 3.92 x10^6/uL (4.30-5.70); RED CELL DISTRIBUTION WIDTH 19.2 % (11.5-14.5); WHITE BLOOD COUNT 11.3 x10^3/uL (4.0-11.0)
[2021-08-05 10:41] LABS: ALBUMIN 3.6 g/dL (3.4-5.0); ALBUMIN/GLOBULIN RATIO 1.1 (1.0-1.7); CALCIUM 8.9 mg/dL (8.5-10.1); GFR 71.7; TOTAL BILIRUBIN 0.3 mg/dL (0.2-1.0)
[2021-08-05 10:43] LABS: POTASSIUM 5.6 mmol/L (3.5-5.1)
== END ==
LOC: ONCLAB 09:03
PROVIDERS: ATTEND Internal Medicine Hematology & Oncology
DX: C61 Malignant neoplasm of prostate (principal)
CPT/HCPCS: 36415; 80053; 85025

== ENCOUNTER → 2021-08-19 | Outpatient (CLI) | payer OTHER ==
[2021-08-19 09:41] LABS: BASO # 0.1 x10^3/uL (0.0-0.2); BASO % 1 % (0-3); EOS # 0.7 x10^3/uL (0.0-0.7); EOS % 8 % (0-3); HEMATOCRIT 34.2 % (39.0-53.0); HEMOGLOBIN 11.4 g/dL (13.0-17.5); LYMPH # 1.5 x10^3/uL (1.0-4.8); LYMPH % 16 % (24-48); MEAN CORPUSCULAR HEMOGLOBIN 30 pg (25-35); MEAN CORPUSCULAR HGB CONC 33 g/dL (31-37); MEAN CORPUSCULAR VOLUME 90 fL (79-100); MONO # 0.8 x10^3/uL (0.0-1.1); MONO % 9 % (0-9); NEUT # 5.9 x10^3/uL (1.8-7.7); NEUT % 66 % (31-73); PLATELET COUNT 337 x10^3/uL (140-400); RED BLOOD COUNT 3.79 x10^6/uL (4.30-5.70); RED CELL DISTRIBUTION WIDTH 18.9 % (11.5-14.5)
[2021-08-19 09:46] LABS: CALCIUM 8.4 mg/dL (8.5-10.1); CREATININE 1.2 mg/dL (0.7-1.3); GFR 58.1; POTASSIUM 5.2 mmol/L (3.5-5.1)
[2021-08-19 09:51] LABS: ALBUMIN 3.4 g/dL (3.4-5.0); ALBUMIN/GLOBULIN RATIO 0.9 (1.0-1.7); TOTAL BILIRUBIN 0.2 mg/dL (0.2-1.0); TOTAL PROTEIN 7.1 g/dL (6.4-8.2)
== END ==
LOC: ONCLAB 09:07
PROVIDERS: ATTEND Internal Medicine Hematology & Oncology
DX: C61 Malignant neoplasm of prostate (principal)
CPT/HCPCS: 36415; 80053; 85025

== ENCOUNTER → 2021-09-02 | Outpatient (CLI) | payer OTHER ==
[2021-09-02 10:59] LABS: BASO # 0.1 x10^3/uL (0.0-0.2); BASO % 1 % (0-3); EOS # 0.2 x10^3/uL (0.0-0.7); EOS % 2 % (0-3); HEMATOCRIT 32.9 % (39.0-53.0); HEMOGLOBIN 11.2 g/dL (13.0-17.5); LYMPH # 1.1 x10^3/uL (1.0-4.8); LYMPH % 11 % (24-48); MEAN CORPUSCULAR HEMOGLOBIN 31 pg (25-35); MEAN CORPUSCULAR HGB CONC 34 g/dL (31-37); MEAN CORPUSCULAR VOLUME 89 fL (79-100); MONO # 0.5 x10^3/uL (0.0-1.1); MONO % 5 % (0-9); NEUT % 81 % (31-73); PLATELET COUNT 372 x10^3/uL (140-400); RED BLOOD COUNT 3.68 x10^6/uL (4.30-5.70); RED CELL DISTRIBUTION WIDTH 17.6 % (11.5-14.5); WHITE BLOOD COUNT 9.9 x10^3/uL (4.0-11.0)
[2021-09-02 11:03] LABS: CALCIUM 8.5 mg/dL (8.5-10.1); CREATININE 1.2 mg/dL (0.7-1.3); GFR 58.1
[2021-09-02 11:05] LABS: POTASSIUM 5.7 mmol/L (3.5-5.1)
[2021-09-02 11:18] LABS: ALBUMIN 3.3 g/dL (3.4-5.0); TOTAL BILIRUBIN 0.2 mg/dL (0.2-1.0); TOTAL PROTEIN 6.5 g/dL (6.4-8.2)
== END ==
LOC: ONCLAB 09:11
PROVIDERS: ATTEND Internal Medicine Hematology & Oncology
DX: C61 Malignant neoplasm of prostate (principal)
CPT/HCPCS: 36415; 80053; 85025

== ENCOUNTER → 2021-09-16 | Outpatient (CLI) | payer OTHER ==
[2021-09-16 09:21] LABS: BASO # 0.1 x10^3/uL (0.0-0.2); BASO % 1 % (0-3); EOS # 0.5 x10^3/uL (0.0-0.7); EOS % 6 % (0-3); HEMATOCRIT 34.4 % (39.0-53.0); HEMOGLOBIN 11.4 g/dL (13.0-17.5); LYMPH # 1.3 x10^3/uL (1.0-4.8); LYMPH % 16 % (24-48); MEAN CORPUSCULAR HEMOGLOBIN 30 pg (25-35); MEAN CORPUSCULAR HGB CONC 33 g/dL (31-37); MEAN CORPUSCULAR VOLUME 90 fL (79-100); MONO # 0.6 x10^3/uL (0.0-1.1); MONO % 8 % (0-9); NEUT # 5.6 x10^3/uL (1.8-7.7); NEUT % 69 % (31-73); PLATELET COUNT 294 x10^3/uL (140-400); RED BLOOD COUNT 3.83 x10^6/uL (4.30-5.70); RED CELL DISTRIBUTION WIDTH 17.1 % (11.5-14.5); WHITE BLOOD COUNT 8.1 x10^3/uL (4.0-11.0)
[2021-09-16 09:36] LABS: CALCIUM 8.5 mg/dL (8.5-10.1); CREATININE 1.3 mg/dL (0.7-1.3); POTASSIUM 5.1 mmol/L (3.5-5.1)
[2021-09-16 09:42] LABS: ALBUMIN 3.3 g/dL (3.4-5.0); TOTAL BILIRUBIN 0.2 mg/dL (0.2-1.0); TOTAL PROTEIN 6.7 g/dL (6.4-8.2)
== END ==
LOC: ONCLAB 08:55
PROVIDERS: ATTEND Internal Medicine Hematology & Oncology
DX: C61 Malignant neoplasm of prostate (principal)
CPT/HCPCS: 36415; 80053; 85025

== ENCOUNTER → 2021-09-30 | Outpatient (CLI) | payer OTHER ==
[2021-09-30 09:15] LABS: BASO # 0.1 x10^3/uL (0.0-0.2); BASO % 1 % (0-3); EOS # 0.5 x10^3/uL (0.0-0.7); EOS % 6 % (0-3); HEMATOCRIT 34.9 % (39.0-53.0); HEMOGLOBIN 11.8 g/dL (13.0-17.5); LYMPH # 1.6 x10^3/uL (1.0-4.8); LYMPH % 22 % (24-48); MEAN CORPUSCULAR HEMOGLOBIN 30 pg (25-35); MEAN CORPUSCULAR HGB CONC 34 g/dL (31-37); MEAN CORPUSCULAR VOLUME 90 fL (79-100); MONO # 0.8 x10^3/uL (0.0-1.1); MONO % 11 % (0-9); NEUT # 4.5 x10^3/uL (1.8-7.7); NEUT % 60 % (31-73); PLATELET COUNT 336 x10^3/uL (140-400); RED BLOOD COUNT 3.89 x10^6/uL (4.30-5.70); RED CELL DISTRIBUTION WIDTH 15.6 % (11.5-14.5); WHITE BLOOD COUNT 7.4 x10^3/uL (4.0-11.0)
[2021-09-30 09:23] LABS: CREATININE 1.3 mg/dL (0.7-1.3); POTASSIUM 5.2 mmol/L (3.5-5.1)
[2021-09-30 09:29] LABS: ALBUMIN 3.6 g/dL (3.4-5.0); ALBUMIN/GLOBULIN RATIO 1.1 (1.0-1.7); TOTAL BILIRUBIN 0.3 mg/dL (0.2-1.0)
[2021-10-05 14:10] LABS: PSA FREE <0.01 ng/mL; PSA TOTAL <0.1 ng/mL (0.0-4.0)
== END ==
LOC: ONCLAB 08:54
PROVIDERS: ATTEND Internal Medicine Hematology & Oncology
DX: C61 Malignant neoplasm of prostate (principal)
CPT/HCPCS: 36415; 80053; 84153; 84154; 85025

== ENCOUNTER → 2021-10-14 | Outpatient (CLI) | payer OTHER ==
[2021-10-14 08:59] LABS: BASO # 0.1 x10^3/uL (0.0-0.2); BASO % 1 % (0-3); EOS # 0.6 x10^3/uL (0.0-0.7); EOS % 8 % (0-3); HEMATOCRIT 35.1 % (39.0-53.0); HEMOGLOBIN 11.7 g/dL (13.0-17.5); LYMPH # 1.4 x10^3/uL (1.0-4.8); LYMPH % 19 % (24-48); MEAN CORPUSCULAR HEMOGLOBIN 30 pg (25-35); MEAN CORPUSCULAR HGB CONC 33 g/dL (31-37); MEAN CORPUSCULAR VOLUME 90 fL (79-100); MONO # 0.7 x10^3/uL (0.0-1.1); MONO % 9 % (0-9); NEUT # 4.5 x10^3/uL (1.8-7.7); NEUT % 63 % (31-73); PLATELET COUNT 353 x10^3/uL (140-400); RED BLOOD COUNT 3.89 x10^6/uL (4.30-5.70); WHITE BLOOD COUNT 7.2 x10^3/uL (4.0-11.0)
[2021-10-14 09:08] LABS: CALCIUM 8.8 mg/dL (8.5-10.1); CREATININE 1.2 mg/dL (0.7-1.3); GFR 58.1; POTASSIUM 5.1 mmol/L (3.5-5.1)
[2021-10-14 09:14] LABS: ALBUMIN 3.3 g/dL (3.4-5.0); ALBUMIN/GLOBULIN RATIO 0.9 (1.0-1.7); TOTAL BILIRUBIN 0.2 mg/dL (0.2-1.0); TOTAL PROTEIN 6.8 g/dL (6.4-8.2)
== END ==
LOC: ONCLAB 08:38
PROVIDERS: ATTEND Internal Medicine Hematology & Oncology
DX: C61 Malignant neoplasm of prostate (principal)
CPT/HCPCS: 36415; 80053; 85025

== ENCOUNTER → 2021-10-28 | Outpatient (CLI) | payer OTHER ==
[2021-10-28 09:16] LABS: BASO # 0.1 x10^3/uL (0.0-0.2); BASO % 1 % (0-3); EOS # 0.6 x10^3/uL (0.0-0.7); EOS % 7 % (0-3); HEMOGLOBIN 10.4 g/dL (13.0-17.5); LYMPH # 1.7 x10^3/uL (1.0-4.8); LYMPH % 20 % (24-48); MEAN CORPUSCULAR HEMOGLOBIN 31 pg (25-35); MEAN CORPUSCULAR HGB CONC 34 g/dL (31-37); MEAN CORPUSCULAR VOLUME 92 fL (79-100); MONO # 0.8 x10^3/uL (0.0-1.1); MONO % 9 % (0-9); NEUT # 5.6 x10^3/uL (1.8-7.7); NEUT % 64 % (31-73); PLATELET COUNT 312 x10^3/uL (140-400); RED BLOOD COUNT 3.38 x10^6/uL (4.30-5.70); WHITE BLOOD COUNT 8.8 x10^3/uL (4.0-11.0)
[2021-10-28 09:24] LABS: CALCIUM 9.1 mg/dL (8.5-10.1); CREATININE 1.2 mg/dL (0.7-1.3); GFR 58.1; POTASSIUM 5.1 mmol/L (3.5-5.1)
[2021-10-28 09:30] LABS: ALBUMIN 3.4 g/dL (3.4-5.0); ALBUMIN/GLOBULIN RATIO 0.9 (1.0-1.7); TOTAL BILIRUBIN 0.2 mg/dL (0.2-1.0); TOTAL PROTEIN 7.2 g/dL (6.4-8.2)
== END ==
LOC: ONCLAB 08:58
PROVIDERS: ATTEND Internal Medicine Hematology & Oncology
DX: C61 Malignant neoplasm of prostate (principal)
CPT/HCPCS: 36415; 80053; 85025

== ENCOUNTER → 2021-11-11 | Outpatient (CLI) | payer OTHER ==
[2021-11-11 08:56] LABS: BASO # 0.1 x10^3/uL (0.0-0.2); BASO % 1 % (0-3); EOS # 0.6 x10^3/uL (0.0-0.7); EOS % 8 % (0-3); HEMATOCRIT 34.1 % (39.0-53.0); HEMOGLOBIN 11.5 g/dL (13.0-17.5); LYMPH # 1.6 x10^3/uL (1.0-4.8); LYMPH % 21 % (24-48); MEAN CORPUSCULAR HEMOGLOBIN 31 pg (25-35); MEAN CORPUSCULAR HGB CONC 34 g/dL (31-37); MEAN CORPUSCULAR VOLUME 92 fL (79-100); MONO # 0.8 x10^3/uL (0.0-1.1); MONO % 11 % (0-9); NEUT # 4.7 x10^3/uL (1.8-7.7); NEUT % 60 % (31-73); PLATELET COUNT 327 x10^3/uL (140-400); RED BLOOD COUNT 3.71 x10^6/uL (4.30-5.70); RED CELL DISTRIBUTION WIDTH 13.9 % (11.5-14.5); WHITE BLOOD COUNT 7.8 x10^3/uL (4.0-11.0)
[2021-11-11 09:19] LABS: ALBUMIN 3.6 g/dL (3.4-5.0); CALCIUM 8.9 mg/dL (8.5-10.1); CREATININE 1.3 mg/dL (0.7-1.3); GFR 52.9; POTASSIUM 5.6 mmol/L (3.5-5.1); TOTAL BILIRUBIN 0.2 mg/dL (0.2-1.0); TOTAL PROTEIN 7.2 g/dL (6.4-8.2)
== END ==
LOC: ONCLAB 08:35
PROVIDERS: ATTEND Internal Medicine Hematology & Oncology
DX: C61 Malignant neoplasm of prostate (principal)
CPT/HCPCS: 36415; 80053; 85025

== ENCOUNTER → 2021-11-25 | Outpatient (CLI) | payer OTHER ==
[2021-11-25 09:47] LABS: BASO # 0.1 x10^3/uL (0.0-0.2); BASO % 1 % (0-3); EOS # 0.6 x10^3/uL (0.0-0.7); EOS % 7 % (0-3); HEMATOCRIT 31.7 % (39.0-53.0); HEMOGLOBIN 10.8 g/dL (13.0-17.5); LYMPH # 1.8 x10^3/uL (1.0-4.8); LYMPH % 22 % (24-48); MEAN CORPUSCULAR HEMOGLOBIN 31 pg (25-35); MEAN CORPUSCULAR HGB CONC 34 g/dL (31-37); MEAN CORPUSCULAR VOLUME 91 fL (79-100); MONO # 0.9 x10^3/uL (0.0-1.1); MONO % 11 % (0-9); NEUT % 60 % (31-73); PLATELET COUNT 337 x10^3/uL (140-400); RED BLOOD COUNT 3.49 x10^6/uL (4.30-5.70); RED CELL DISTRIBUTION WIDTH 13.6 % (11.5-14.5); WHITE BLOOD COUNT 8.4 x10^3/uL (4.0-11.0)
[2021-11-25 10:05] LABS: CALCIUM 9.2 mg/dL (8.5-10.1); CREATININE 1.3 mg/dL (0.7-1.3); GFR 52.9; POTASSIUM 4.9 mmol/L (3.5-5.1)
[2021-11-25 10:11] LABS: ALBUMIN 3.5 g/dL (3.4-5.0); ALBUMIN/GLOBULIN RATIO 0.9 (1.0-1.7); TOTAL BILIRUBIN 0.2 mg/dL (0.2-1.0); TOTAL PROTEIN 7.5 g/dL (6.4-8.2)
== END ==
LOC: ONCLAB 08:35
PROVIDERS: ATTEND Internal Medicine Hematology & Oncology
DX: C61 Malignant neoplasm of prostate (principal)
CPT/HCPCS: 36415; 80053; 85025

== ENCOUNTER → 2021-12-23 | Outpatient (CLI) | payer OTHER ==
[2021-12-23 09:39] LABS: BASO % 1 % (0-3); EOS # 0.6 x10^3/uL (0.0-0.7); EOS % 7 % (0-3); HEMATOCRIT 32.8 % (39.0-53.0); HEMOGLOBIN 11.1 g/dL (13.0-17.5); LYMPH # 1.7 x10^3/uL (1.0-4.8); LYMPH % 20 % (24-48); MEAN CORPUSCULAR HEMOGLOBIN 31 pg (25-35); MEAN CORPUSCULAR HGB CONC 34 g/dL (31-37); MEAN CORPUSCULAR VOLUME 93 fL (79-100); MONO # 0.7 x10^3/uL (0.0-1.1); MONO % 8 % (0-9); NEUT # 5.5 x10^3/uL (1.8-7.7); NEUT % 64 % (31-73); PLATELET COUNT 318 x10^3/uL (140-400); RED BLOOD COUNT 3.55 x10^6/uL (4.30-5.70); RED CELL DISTRIBUTION WIDTH 13.5 % (11.5-14.5); WHITE BLOOD COUNT 8.6 x10^3/uL (4.0-11.0)
[2021-12-23 10:12] LABS: CALCIUM 8.6 mg/dL (8.5-10.1); CREATININE 1.3 mg/dL (0.7-1.3); GFR 52.9; POTASSIUM 5.3 mmol/L (3.5-5.1)
[2021-12-23 10:20] LABS: ALBUMIN 3.4 g/dL (3.4-5.0); TOTAL BILIRUBIN 0.2 mg/dL (0.2-1.0); TOTAL PROTEIN 6.9 g/dL (6.4-8.2)
== END ==
LOC: ONCLAB 08:44
PROVIDERS: ATTEND Physician Assistant
DX: C61 Malignant neoplasm of prostate (principal)
CPT/HCPCS: 80053; 84153; 84154; 85025

== ENCOUNTER → 2022-01-20 | Outpatient (CLI) | payer OTHER ==
[2022-01-20 09:57] LABS: BASO # 0.1 x10^3/uL (0.0-0.2); BASO % 1 % (0-3); EOS # 0.4 x10^3/uL (0.0-0.7); EOS % 6 % (0-3); HEMATOCRIT 29.2 % (39.0-53.0); HEMOGLOBIN 9.7 g/dL (13.0-17.5); LYMPH # 1.6 x10^3/uL (1.0-4.8); LYMPH % 22 % (24-48); MEAN CORPUSCULAR HEMOGLOBIN 31 pg (25-35); MEAN CORPUSCULAR HGB CONC 33 g/dL (31-37); MEAN CORPUSCULAR VOLUME 93 fL (79-100); MONO # 0.7 x10^3/uL (0.0-1.1); MONO % 9 % (0-9); NEUT # 4.5 x10^3/uL (1.8-7.7); NEUT % 62 % (31-73); PLATELET COUNT 295 x10^3/uL (140-400); RED BLOOD COUNT 3.13 x10^6/uL (4.30-5.70); RED CELL DISTRIBUTION WIDTH 13.7 % (11.5-14.5); WHITE BLOOD COUNT 7.3 x10^3/uL (4.0-11.0)
[2022-01-20 10:16] LABS: CALCIUM 9.2 mg/dL (8.5-10.1); CREATININE 1.4 mg/dL (0.7-1.3); GFR 48.5; POTASSIUM 4.6 mmol/L (3.5-5.1)
[2022-01-20 10:22] LABS: ALBUMIN 3.5 g/dL (3.4-5.0); TOTAL BILIRUBIN 0.2 mg/dL (0.2-1.0); TOTAL PROTEIN 6.9 g/dL (6.4-8.2)
[2022-01-22 19:11] LABS: PSA FREE <0.01 ng/mL; PSA TOTAL <0.1 ng/mL (0.0-4.0)
== END ==
LOC: ONCLAB 08:38
PROVIDERS: ATTEND Internal Medicine Hematology & Oncology
DX: C61 Malignant neoplasm of prostate (principal)
CPT/HCPCS: 36415; 80053; 84153; 84154; 85025

== ENCOUNTER → 2022-02-17 | Outpatient (CLI) | payer OTHER ==
[2022-02-17 09:01] LABS: BASO # 0.1 x10^3/uL (0.0-0.2); BASO % 1 % (0-3); EOS # 0.4 x10^3/uL (0.0-0.7); EOS % 5 % (0-3); HEMATOCRIT 31.5 % (39.0-53.0); HEMOGLOBIN 10.6 g/dL (13.0-17.5); LYMPH # 1.7 x10^3/uL (1.0-4.8); LYMPH % 20 % (24-48); MEAN CORPUSCULAR HEMOGLOBIN 31 pg (25-35); MEAN CORPUSCULAR HGB CONC 34 g/dL (31-37); MEAN CORPUSCULAR VOLUME 92 fL (79-100); MONO # 0.7 x10^3/uL (0.0-1.1); MONO % 8 % (0-9); NEUT # 5.8 x10^3/uL (1.8-7.7); NEUT % 67 % (31-73); PLATELET COUNT 351 x10^3/uL (140-400); RED BLOOD COUNT 3.43 x10^6/uL (4.30-5.70); RED CELL DISTRIBUTION WIDTH 13.4 % (11.5-14.5); WHITE BLOOD COUNT 8.8 x10^3/uL (4.0-11.0)
[2022-02-17 09:10] LABS: CALCIUM 9.5 mg/dL (8.5-10.1); CREATININE 1.5 mg/dL (0.7-1.3); GFR 44.8; POTASSIUM 4.9 mmol/L (3.5-5.1)
[2022-02-17 09:16] LABS: ALBUMIN 3.7 g/dL (3.4-5.0); TOTAL PROTEIN 7.6 g/dL (6.4-8.2)
[2022-02-17 09:17] LABS: ALBUMIN/GLOBULIN RATIO 0.9 (1.0-1.7); TOTAL BILIRUBIN 0.3 mg/dL (0.2-1.0)
== END ==
LOC: ONCLAB 08:48
PROVIDERS: ATTEND Internal Medicine Hematology & Oncology
DX: C61 Malignant neoplasm of prostate (principal)
CPT/HCPCS: 80053; 84153; 84154; 85025

== ENCOUNTER → 2022-03-17 | Outpatient (CLI) | payer OTHER ==
[2022-03-17 09:45] LABS: BASO # 0.1 x10^3/uL (0.0-0.2); BASO % 1 % (0-3); EOS # 0.5 x10^3/uL (0.0-0.7); EOS % 5 % (0-3); HEMATOCRIT 29.5 % (39.0-53.0); HEMOGLOBIN 10.2 g/dL (13.0-17.5); LYMPH # 1.7 x10^3/uL (1.0-4.8); LYMPH % 20 % (24-48); MEAN CORPUSCULAR HEMOGLOBIN 32 pg (25-35); MEAN CORPUSCULAR HGB CONC 35 g/dL (31-37); MEAN CORPUSCULAR VOLUME 93 fL (79-100); MONO # 0.7 x10^3/uL (0.0-1.1); MONO % 9 % (0-9); NEUT # 5.6 x10^3/uL (1.8-7.7); NEUT % 66 % (31-73); PLATELET COUNT 364 x10^3/uL (140-400); RED BLOOD COUNT 3.17 x10^6/uL (4.30-5.70); RED CELL DISTRIBUTION WIDTH 13.6 % (11.5-14.5); WHITE BLOOD COUNT 8.5 x10^3/uL (4.0-11.0)
[2022-03-17 10:02] LABS: CREATININE 1.7 mg/dL (0.7-1.3); GFR 38.8; POTASSIUM 5.1 mmol/L (3.5-5.1)
[2022-03-17 10:07] LABS: ALBUMIN 3.6 g/dL (3.4-5.0); TOTAL BILIRUBIN 0.1 mg/dL (0.2-1.0); TOTAL PROTEIN 7.1 g/dL (6.4-8.2)
[2022-03-18 13:26] LABS: PSA FREE <0.01 ng/mL; PSA TOTAL <0.1 ng/mL (0.0-4.0)
== END ==
LOC: ONCLAB 08:42
PROVIDERS: ATTEND Internal Medicine Hematology & Oncology
DX: C61 Malignant neoplasm of prostate (principal)
CPT/HCPCS: 36415; 80053; 84153; 84154; 85025